=== PATIENT | male | born 1945 | race Caucasian/White ===

== ENCOUNTER 2018-11-20 18:50 | Emergency (ER) | payer OTHER, MEDICARE ==
[~2018-11-20] VITALS: Ht 177.8 cm; Wt 74.1 kg
[~2018-11-20 18:50] MED LIST: ALENDRONATE70 MG PO; AMLODIPINE BESYL5 MG OR; AMOXICILLIN500 MG PO; ANTI-FUNGAL12 TOP; ARICEPT PO; ARTIFI TEARS OP; ASTELIN NASA137 MCG; BIOTIN FORTE5 MG OR; BL CALCIUM500 MG PO; CALCIUM500 M1 OR; CEPHALEXIN500 MG PO; CIPROFLOXACN500 MG PO; CLARITIN10 M1 PO; COMPAZINE10 MG OR; DEPO-MEDROL80 MG/ML IM; DERMA SMOOTHE EX; DESONIDE0.05 % EX; DILAUDID 2MG2 MG/TA1 PO; DIOVAN HCT320 MG/25 PO; FLOMAX0.4 M1 PO; FLONASE NASAL50 MCG; FLUOCINONIDE0.054 TOP; GNP RED YEAST RICE PO; HALCION0.25 MG OR; HOUR PAIN OR; LISINOPRIL5 MG PO; LOMOTIL2.5 MG OR; LUTEIN20 MG OR; METO25TAB PO; METOPROLOL SUCC50 MG OR; MULTI VIT PO; MULTIVITAM10 OR; NAPROSYN500 MG PO; OMEGA-1 PO; OMEPRAZOLE10 MG PO; OMEPRAZOLE20 MG PO; PROTONIX40 M2 PO; ULTRA OMEGA PO; VITAMIN C1000 MG PO; VITAMIN D2 PO; VITAMIN D32000 UNIT PO; ZOCOR20 MG PO; ZOSTAVAX IM; [UNRECOGNIZED DRUG - OTHER] EX
[2018-11-20] MEDS ORDERED: LOSARTAN POT25 MG PO (19:05)
[2018-11-20] MEDS ORDERED: ARICEPT5 MG PO (19:05)
[2018-11-20] MEDS ORDERED: NAMENDA10 MG PO (19:05)
[2018-11-20] MEDS ORDERED: FLEXERIL PO (20:48)
[2018-11-20] MEDS ORDERED: NAPROSYN500 MG PO (20:48)
[2018-11-20 21:05] VITALS: BP 133/89
== END 2018-11-20 21:05 | disposition home or self-care (01) | DRG 552 ==
LOC: ED 18:50
DX: S33.5XXA Sprain of ligaments of lumbar spine, initial encounter (principal); S23.3XXA Sprain of ligaments of thoracic spine, initial encounter; V52.5XXA Driver of pick-up truck or van injured in collision with two- or three-wheeled motor vehicle in traffic accident, initial encounter; Y92.410 Unspecified street and highway as the place of occurrence of the external cause; M47.812 Spondylosis without myelopathy or radiculopathy, cervical region; M47.816 Spondylosis without myelopathy or radiculopathy, lumbar region; M47.814 Spondylosis without myelopathy or radiculopathy, thoracic region; R51 Headache

== ENCOUNTER 2019-01-20 04:29 | Inpatient (IN) | payer MEDICARE, OTHER ==
[~2019-01-20] VITALS: Ht 177.8 cm; Wt 74.2 kg
[~2019-01-20 04:29] MED LIST changes: +ARICEPT5 MG PO; +FLEXERIL PO; +LOSARTAN POT25 MG PO; +NAMENDA10 MG PO
--- NOTE | 2019-01-20 04:33 | NUR ---
PATIENT AMBULATORY TO ROOM 10 FOR BEDSIDE TRIAGE. UNDRESSED INTO A GOWN. AWAITING EVAL.
[2019-01-20 05:09] LABS: HEMATOCRIT 46.1 % (39.0-50.0); HEMOGLOBIN 15.7 g/dl (14.0-18.0); IMMATURE GRANULOCYTES 0.6 % (0.0-5.0); MEAN CELL VOLUME 94.1 fL CALC (80.0-100.0); MEAN CORPUSCULAR HGB CONC 34.1 g/L CALC (32.0-36.0); NEUT# 9.11 thou/uL (1.82-7.42); RED BLOOD COUNT 4.9 mill/uL (4.70-6.10); RED CELL DISTRI WIDTH 13.5 % (11.5-15.5)
--- NOTE | 2019-01-20 05:13 | NUR ---
MEDICATED WITH ZOFRAN AND TORADOL PER ORDER AND IV FLUIDS INFUSING. XRAY AT BEDSIDE.
[2019-01-20 05:25] LABS: ALBUMIN 4.5 g/dL (3.2-5.0); BILIRUBIN, TOTAL 2.6 mg/dL (0.0-1.4); CREATININE 1.5 mg/dL (0.7-1.3); POTASSIUM 4.2 mmol/l (3.5-5.1); TOTAL PROTEIN 8.7 g/dL (6.3-8.2)
--- NOTE | 2019-01-20 05:56 | NUR ---
DR GARCIA IN TO GO OVER RESULTS WITH PT AND .
--- NOTE | 2019-01-20 06:20 | NUR ---
CALLED FLOOR TO GIVE REPORT, [facility] WILL CALL BACK
--- NOTE | 2019-01-20 06:28 | NUR ---
CALLED THE FLOOR AGAIN FOR REPORT, NO ANSWER.
--- NOTE | 2019-01-20 06:38 | NUR ---
CALLED FLOOR AGAIN FOR REPORT, ASKED TO WAIT UNTIL DAY SHIFT COMES ON.
--- NOTE | 2019-01-20 06:48 | NUR ---
Admission Note Report Given to: CARMELO MEADE Transported by: X Wheelchair Stretcher Transported with: X Nurse Transporter X Patent IV O2 Diagnostic Sales Specialist
[2019-01-20 06:55] VITALS: BP 144/87
--- NOTE | 2019-01-20 06:55 | NUR ---
PT ARRIVED TO [facility] VIA WHEELCHAIR ACCOMPANIED BY ER NURSE. 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 PT AMBULATES WITH STEADY GAIT. ORIENTED PT TO ROOM AND CALL LIGHT, VERBALIZED UNDERSTANDING. BED ALARM SET FOR SAFETY, DISCUSSED DIET PT UPSET BUT VERBALIZED UNDERSTANDING. 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 CALL LIGHT IN REACH,CONTINUE TO MONITOR.
--- NOTE | 2019-01-20 08:58 | NUR ---
DISCUSSED LOVENOX, PT IN AGREEMENT. PT REQUESTING SOMETHING TO DRINK, INFORMED PT THAT HE IS NPO, PT UPSET, REORIENTED PT TO DIET AND IVF FLUIDS, VERBALIZED UNDERSTANDING. CALL LIGHT IN REACH, CONTINUE TO MONITOR.
[2019-01-20 09:33] LABS: CHOLESTEROL HDL RATIO 3.5 (<4.4 (CALC))
[2019-01-20 12:05] LABS: BARBITURATES NEGATIVE (NEGATIVE); COCAINE NEGATIVE (NEGATIVE); METHADONE NEGATIVE (NEGATIVE); OXCYCODONE NEGATIVE (NEGATIVE); TETRAHYDROCANNABIONOL NEGATIVE (NEGATIVE); TRICYLIC ANTIDEPRESSANTS NEGATIVE (NEGATIVE)
--- NOTE | 2019-01-20 12:15 | NUR ---
PT AMBULATING HALLWAY, NO SIGNS OF DISTRESS NOTED, RESP EVEN AND UNLABORED. IVF INFUSING, CONTINUE TO MONITOR.
[2019-01-20 14:17] LABS: URINE BILIRUBIN - DIPSTICK NEGATIVE (NEGATIVE); URINE BLOOD DIPSTICK SMALL (NEGATIVE); URINE COLOR YELLOW; URINE GLUCOSE - DIPSTICK NEGATIVE (NEGATIVE); URINE KETONE TRACE mg/dL (NEGATIVE); URINE LEUK ESTERASE LARGE (NEGATIVE); URINE NITRITE - DIPSTICK NEGATIVE (Negative); URINE PH 7.5 (4.5-8.0); URINE PROTEIN - DIPSTICK 100 mg/dL (NEG-TRACE); URINE SPECIFIC GRAVITY 1.015
[2019-01-20 14:23] LABS: URINE SQUAMOUS EPITHELIAL CELL FEW EPI/hpf (0-FEW); URINE WBC TNTC WBC/hpf (0-5)
[2019-01-20 14:24] LABS: URINE AMORPH SEDIMENT MANY hpf (NONE-FER); URINE BACTERIA FEW hpf
[2019-01-20 17:04] VITALS: BP 120/79
--- NOTE | 2019-01-20 18:09 | NUR ---
PT RESTING IN BED, WITH EYES CLOSED, NO SIGNS OF DISTRESS NOTED, RESP EVEN AND UNLABORED. CALL LIGHT IN REACH,CONTINUE TO MONITOR.
[2019-01-20 19:28] VITALS: BP 119/75
--- NOTE | 2019-01-20 20:00 | NUR ---
PATIENT IS UP AND AMBULATING IN THE MILLER-STEADY ON HIS FEET AT THIS TIME. REINFORCED TO PATIENT THAT HE IS NPO AT THIS TIME-NO FOOD OR FLUIDS ORALLY AT THIS TIME. IVF PATENT AND INFUSING AT 125CC/HR VIA RIGHT FOREARM SITE. NO COMPLAINTS. SAFETY PRECAUTIONS REINFORCED. WILL CONT TO MONITOR.
--- NOTE | 2019-01-21 00:16 | NUR ---
PATIENT RESTING IN BED-AWAKE ALERT AND ORIENTEDX3. PATIENT WITH NO COMPLAINTS AT THIS TIME. IVF NS PATENT ANDINFUSING AT 125CC/HR VIA RIGHT FOREARM SITE. SITE IS HEALTHY AT THIS TIME. PATIENT HAS SOME DIFFICULTY ANSWERING QUESTIONS. SAFETY PRECAUTIONS REINFORCED. CALL LIGHT IN REACH. WILL CONT TO MONITOR.
--- NOTE | 2019-01-21 04:00 | NUR ---
PATIENT RESTING IN BED-POSITIONED ON ILEFT SIDE WITH EYES CLOSED-APPEARS SLEEPING-RESP ARE EVEN AND UNLABORED. IVF PATENT AND INFUSING AT 125CC/HR VIA RIGHT FOREARM SIRE. CALL LIGHT IN REACH. WILL CONT TO MONITOR.
[2019-01-21 04:04] VITALS: BP 136/78
[2019-01-21 07:36] VITALS: BP 131/81
--- NOTE | 2019-01-21 07:36 | NUR ---
PT RESTING IN BED, NO SIGNS OF DISTRESS NOTED, RESP EVEN AND UNLABORED. PT ALERT AND ORIENTED X3, DISCUSSED POC, PT IN AGREEMENT. CALL LIGHT IN REACH,CONTINUE TO MONITOR. ASSESSMENT COMPLETED.
--- NOTE | 2019-01-21 09:30 | NUR ---
PT CHANGED TO CLEAR LIQUID WATER PROVIDED, INFORMED PT OF NEED TO REPEAT URINE CULTURE,PT IN AGREEMENT TO SHOWER, HENNY PROVIDED TO SHOWER AND CLEAN PERIAREA, FOR CLEAN CATCH. ASSISTED IN SHOWER BY SASHA. CONTINUE TO MONITOR.
[2019-01-21 09:53] LABS: HEMATOCRIT 40.5 % (39.0-50.0); MEAN CORPUSCULAR HGB 32.2 pG CALC (26.0-32.0); MEAN CORPUSCULAR HGB CONC 31.6 g/L CALC (32.0-36.0); RED BLOOD COUNT 3.98 mill/uL (4.70-6.10); RED CELL DISTRI WIDTH 13.9 % (11.5-15.5)
[2019-01-21 09:54] LABS: HEMOGLOBIN 12.8 g/dl (14.0-18.0); MEAN CELL VOLUME 101.8 fL CALC (80.0-100.0)
[2019-01-21 10:11] LABS: CREATININE 1.4 mg/dL (0.7-1.3); MAGNESIUM 1.9 mg/dL (1.6-2.3); POTASSIUM 4.7 mmol/l (3.5-5.1)
[2019-01-21 10:21] LABS: URINE BILIRUBIN - DIPSTICK NEGATIVE (NEGATIVE); URINE BLOOD DIPSTICK MODERATE (NEGATIVE); URINE COLOR YELLOW; URINE GLUCOSE - DIPSTICK NEGATIVE (NEGATIVE); URINE KETONE NEGATIVE (NEGATIVE); URINE LEUK ESTERASE MODERATE (Negative); URINE NITRITE - DIPSTICK NEGATIVE (Negative); URINE PROTEIN - DIPSTICK 30 mg/dL (NEG-TRACE); URINE SPECIFIC GRAVITY 1.015
[2019-01-21 10:23] LABS: URINE CLARITY CLOUDY
--- NOTE | 2019-01-21 10:30 | NUR ---
DISCUSSED INFUSION OF ROCEPHIN, PT IN AGREEMENT. CALL LIGHT IN REACH,CONTINUE TO MONITOR.
[2019-01-21 10:57] LABS: URINE WBC TNTC WBC/hpf (0-5)
--- NOTE | 2019-01-21 11:30 | NUR ---
ORDERS TO PLACE ZELAYA CATHETER, #16F ZELAYA INSERTED USING STERILE TECHNIQUE, SOME DIFFICULTY ADVANCING CATHETER, BUT SUCCESSFULLY INSERTED. PT TOLERATED WELL, BAG DRAINING CLOUDY DEQUAN URINE TO GRAVITY, STAT LOCK IN PLACE TO R INNER THIGH. CALL LIGHT IN REACH,CONTINUE TO MONITOR.
--- NOTE | 2019-01-21 14:38 | NUR ---
NURSING MANAGER ORANGE AND ER CHARGE NURSE ATTEMPTED IV INSERTION, BOTH UNSUCCESSFUL. NOTIFIED WATER CONTROL STATION ENGINEER, POSSIBLE MIDLINE INSERTION TOMORROW. CALL LIGHT IN REACH,CONTINUE TO MONITOR.
--- NOTE | 2019-01-21 16:13 | NUR ---
PT AMBULATING HALLWAY, NO SIGNS OF DISTRESS NOTED, CONTINUE TO MONITOR.
[2019-01-21 16:40] VITALS: BP 127/75
[2019-01-21 19:18] VITALS: BP 126/79
--- NOTE | 2019-01-21 21:33 | NUR ---
PATIENT IS UP AMBULATING IN THE HALLS WITH STEADY GAIT. PATIENT IS CARRYING THR ZELAYA DRAINAGE BAG BELOW THE LEVEL OF THE BLADDER DIRECTED. NO COMPLAINTS AT THIS TIME. WILL CONT TO MONITOR
--- NOTE | 2019-01-22 | NUR ---
PATIENT APPEARS SLEEPING AT THIS TIME WITH EYES CLOSED. RESP ARE EVEN AND UNLABORED. ZELAYA CATH PATENT AND DRAINING ORANGE URINE-PATIENT IS TAKING PYRIDIUM. NPO FOR TESTING IN AM. CALL LIGHT IN REACH. WILL CONT TO MONITOR.
[2019-01-22 03:52] VITALS: BP 119/66
--- NOTE | 2019-01-22 05:00 | NUR ---
PATIENT AWAKE ALERT AND ORIENTED WALKING IN THE MILLER WITH STEADY GAIT WITH URINE DRAINAGE BAG BENEATH THE LEVEL OF THE BLADDER. URINE CONT TO BE ORANGE DUE TO PYRIDIUM. NPO FOR TESTING THIS MORNING. NO COMPLAINTS AT THIS TIME. WILL CONT TO MONITOR
[2019-01-22 05:06] LABS: HEMATOCRIT 38.7 % (39.0-50.0); HEMOGLOBIN 12.8 g/dl (14.0-18.0); IMMATURE GRANULOCYTES 1.1 % (0.0-5.0); MEAN CELL VOLUME 96.8 fL CALC (80.0-100.0); MEAN CORPUSCULAR HGB CONC 33.1 g/L CALC (32.0-36.0); NEUT# 6.38 thou/uL (1.82-7.42); RED CELL DISTRI WIDTH 13.3 % (11.5-15.5)
[2019-01-22 05:18] LABS: ANION GAP 10 (6-22 (CALC)); BUN 16 mg/dL (8-23); BUN/CREATININE RATIO 15 (12-20 (CALC)); CARBON DIOXIDE 22 mmol/l (22-30); CHLORIDE 110 mmol/l (95-108); CREATININE 1.1 mg/dL (0.7-1.3); GFR > 60 ML/MIN (>=60 (CALC)); GFR FOR AFR.AMER. > 60 ML/MIN (>=60 (CALC)); LIPASE 155 u/l (23-300); MAGNESIUM 1.8 mg/dL (1.6-2.3); POTASSIUM 3.9 mmol/l (3.5-5.1); SODIUM 138 mmol/l (137-146)
--- NOTE | 2019-01-22 07:58 | NUR ---
SHIFT CHANGE REPORT, PT SLEEPING AT THIS TIME, BREATHING EVEN AND NON-LABORED, NO SIGN DISCOMFORT OBSERVED, ZELAYA CATHETER IN PLACE WITH DEQUAN DRAINAGE, CALL TRUJILLO IN REACH.
[2019-01-22 08:26] VITALS: BP 116/66
[2019-01-22] MEDS ORDERED: KEFLEX500 MG PO (10:50)
--- NOTE | 2019-01-22 12:00 | NUR ---
DR LAU ROUNDED, DISCUSSED PREVIOUS ORDERS OF MIDLINE PLACEMENT AND ABD US BUT HE SAID PT DIDNT NEED EITHER ORDER AND STATED TO CNACEL HE WOULD D/C PT HOME WITH ZELAYA CATHETER TO FOLLOW UP WITH DR ELLIOTT,PT INFORMED AND STATED UNDERSTANDING.
[2019-01-22 15:14] VITALS: BP 126/86
--- NOTE | 2019-01-22 15:40 | NUR ---
DC ORDERS PROCESSED, PT WAITING FOR SISTER TO TRANSPORT HIM HOME, C/O HEARTBURN, DR LAU NOTIFIED AND GAVE ORDER. LATER PT C/O SEVERE ABD PAIN AND NAUSEA, NO IV ACCESS TO MEDICATE, YASSINE WRITER EDITOR PLACED IV CATHETER AND CONCERNS ADDRESSED. DR LAU INFORMED OF PT'S C/O OF ABD PAIN AND WROTE ORDERS. SISTER (MAURA) HERE AND REQUEST TO HAVE US DORERED EARLIER DONE, DR LAU AWARE PT WILL NOT BE LEAVING TODAY, ORDERED TESTS TO BE DONE BEFORE PT LEAVES, ONCOMING RN TO CONTNUE FOLLOW UP.
[2019-01-22 19:00] VITALS: BP 140/82
--- NOTE | 2019-01-22 19:40 | NUR ---
RECEIVED CALL FROM RandiAyse AZUL, PATIENT'S SISTER, AND PER HER STATEMENT, THE PATIENT'S HEALTH CARE SURROGATE. SHE HAD SEVERAL CONCERNS REGARDING THE PATIENT'S PLAN OF CARE AND WAS ENCOURAGED TO EXPRESS HER FEELINGS FULLY. SHE WAS ADVISED THAT WITHOUT LEGAL PAPERWORK IN THE PATIENT'S RECORD, SHE COULD NOT BE INVOLVED IN THE PLAN OF CARE UNLESS SHE WAS PHYSICALLY PRESENT AND THE PATIENT AGREED. SHE EXPRESSED UNDERSTANDING AND PLANS TO PURSUE HEALTHCARE SURROGACY/POA DUE TO PATIENT'S MEMORY LOSS. SHE ALSO STATED THAT PATIENT PLANNED ON DISCONTINUING THE USE OF ALCOHOL UPON DISCHARGE AND WAS ADVISED TO CALL CASE MANAGEMENT IN AM FOR ASSISTANCE AND/OR EDUCATION ON POSSIBLE OUTPATIENT RESOURCES AND ALSO ADVICE ON COMPLETION OF POA PAPERWORK. CASE MANAGEMENT WAS NOTIFIED OF THIS CONVERSATION AND ADVISED THAT MS. AZUL WOULD BE CONTACTING THEM IN THE AM.
--- NOTE | 2019-01-22 20:00 | NUR ---
PATIENT RESTING IN BED AT THIS TIME. AWAKE ALERT AND ORIENTEDX3. IVF PATENT AND INFUSING ORDERED VIA RIGHT FOREARM SITE. SITE REMAINS HEALTHY. ZELAYA CATH PATENT AND DRIANING YELLOW URINE. NPO AT THIS TIME. FOR CT ABD/PELVIS TONIGHT. WILL CONT TO MONITOR.
--- NOTE | 2019-01-22 22:24 | NUR ---
PATIENT WENT DOWN QAND BACK TO RADIOLOGY FOR CT ABD ORDERED. PATIENT ASSISTED BACK INTO BED. ZELAYA PATENT AND DRAING SLIGHTLY ORANGE URINE. PATIENT IS ON PYRIDIUM. IVF PATENT AND INFUSING ORDERED VIA RIGHT FOREARM SITE-SITE REMAINS HEALTHYA THIS TIME. PATIENT REMAINS NPO. CONT TO C/O SOME ABD DISCOMFORT. SAFETY PRECAUTIONS REINFORCED. CALL LIGHT IN REACH. WILL CONT TO MONITOR.
--- NOTE | 2019-01-23 00:22 | NUR ---
PATIENT RESTING IN BED-PER CT ZELAYA CATH BALLOON WAS DEFLATED AND THEN REINSERTED AND BALLOON REINFLATED-DRAINING LARGE AMT OF LIGHT ORANGE URINE FOLLOWING THE ADJUSTMENT OF THE ZELAYA CATH. PATIENT REMAINS NPO AT THIS TIME. IVF PATENT AND INFUSING VIA RIGHT FOREARM SITE ORDERED. SITE REMAINS HEALTHY. SAFETY PRECAUTIONS REINFORCED. CALL LIGHT IN REACH. WILL CONT TO MONITOR.
[2019-01-23 04:20] VITALS: BP 115/67
--- NOTE | 2019-01-23 04:30 | NUR ---
PATIENT RESTING IN BED WITH NO COMPLAINTS AT THIS TIME. IVF PATENT AND INFUSING ORDERED. ZELAYA CATH PATENT AND DRAINING ORANGE URINE-PATIENT IS ON PYRIDIUM. CALL LIGHT IN REACH. WILL CONT TO MONITOR.
[2019-01-23 05:03] LABS: HEMATOCRIT 38.4 % (39.0-50.0); HEMOGLOBIN 12.9 g/dl (14.0-18.0); IMMATURE GRANULOCYTES 0.7 % (0.0-5.0); MEAN CELL VOLUME 95.3 fL CALC (80.0-100.0); MEAN CORPUSCULAR HGB CONC 33.6 g/L CALC (32.0-36.0); RED BLOOD COUNT 4.03 mill/uL (4.70-6.10); RED CELL DISTRI WIDTH 13.2 % (11.5-15.5)
[2019-01-23 05:21] LABS: ALKALINE PHOSPHATASE 177 u/l (38-126); AMYLASE 1151 u/l (30-110); ANION GAP 11 (6-22 (CALC)); BILIRUBIN, TOTAL 3.9 mg/dL (0.0-1.4); BUN 10 mg/dL (8-23); BUN/CREATININE RATIO 10 (12-20 (CALC)); CARBON DIOXIDE 23 mmol/l (22-30); CHLORIDE 106 mmol/l (95-108); GFR > 60 ML/MIN (>=60 (CALC)); GFR FOR AFR.AMER. > 60 ML/MIN (>=60 (CALC)); MAGNESIUM 1.7 mg/dL (1.6-2.3); POTASSIUM 3.4 mmol/l (3.5-5.1); SGOT/AST 130 u/l (19-48); SODIUM 137 mmol/l (137-146)
[2019-01-23 05:29] LABS: LIPASE 3333 u/l (23-300); TOTAL PROTEIN 6.2 g/dL (6.3-8.2)
--- NOTE | 2019-01-23 08:09 | NUR ---
PT SITTING IN COUCH. ASSESSMENT DONE. PT IS A&O X3 AT THIS TIME. PT NPO. PT DENIES PAIN. RESPS EVEN AND UNLABORED. ZELAYA IS PATENT WITH ORANGE URINE. CALL LIGHT IN REACH.
[2019-01-23 08:15] VITALS: BP 123/77
--- NOTE | 2019-01-23 10:26 | NUR ---
DR. GIBBS AT BEDSIDE TO ASSESS AND DISCUSS POC WITH PT.
--- NOTE | 2019-01-23 10:30 | NUR ---
DR. LAU AT BEDSIDE TO DISCUSS POC WITH PT.
--- NOTE | 2019-01-23 12:22 | NUR ---
PT IN ROOM VISTING WITH SISTER. NO S/S OF DISTRESS NOTED. CALL LIGHT IN REACH.
[2019-01-23 15:18] VITALS: BP 111/68
--- NOTE | 2019-01-23 15:32 | NUR ---
PT RESTING IN BED. PT DENIES PAIN AT THIS TIME OR NEEDS. CALL LIGHT IN REACH.
[2019-01-23 19:00] VITALS: BP 120/77
--- NOTE | 2019-01-23 20:00 | NUR ---
PATIENT RESTING IN BED WITH HOB ELEVATED WATCHING TV. PATIENT IS AWAKE ALERT AND ORIENTEDX3. PATIENT WITH NO COMPLAINTS AT THIS TIME. IVF PATENT AND INFUSING RIGHT WRIST AT 125CC/HR. SITE IS HEALTHY AT THIS TIME. ZELAYA PATENT AND DRAINING ORANGE URINE-PATIENT IS ON PURIDIUM. SAFETY PRECAUTIONS REINFORCED. CALL LIGHT IN REACH. WILL CONT TO MONITOR.
--- NOTE | 2019-01-23 23:34 | NUR ---
PATIENT RESTING IN BED WITH NO COMPLAINTS AT THIS TIME. TELE MONITOR IN PLACE. SAFETY PRECAUTIONS REINFORCED. CALL LIGHT IN REACH. WILL CONT TO MONITOR.
--- NOTE | 2019-01-23 23:36 | NUR ---
PATIENT APPEARS SLEEPING AT THIS TIME WITH EYES CLOSED. RESP ARE EVEN AND UNLABORED. IVF PATENT AND INFUSING AT 125CC/HR. SITE REMAINS HEALTHY. CALL LIGHT IN REACH. WILL CONT TO MONITOR.
[2019-01-24 04:00] VITALS: BP 142/77
--- NOTE | 2019-01-24 04:43 | NUR ---
RESTING IN BED-ZELAYA PATENT AND DRAINING ORANGE URINE. PATIENT IS ON PYRIDIUM. IVF PATENT AND INFUSING VIA RIGHT WRIST SITE AT 125CC/HR, NPO FOR POSS PROCEDURE TODAY. CALL LIGHT IN REACH. WILL CONT TO MONITOR.
[2019-01-24 05:53] LABS: HEMATOCRIT 36.5 % (39.0-50.0); HEMOGLOBIN 12.3 g/dl (14.0-18.0); IMMATURE GRANULOCYTES 1.2 % (0.0-5.0); MEAN CELL VOLUME 96.1 fL CALC (80.0-100.0); MEAN CORPUSCULAR HGB 32.4 pG CALC (26.0-32.0); MEAN CORPUSCULAR HGB CONC 33.7 g/L CALC (32.0-36.0); NEUT# 4.65 thou/uL (1.82-7.42); RED BLOOD COUNT 3.8 mill/uL (4.70-6.10); RED CELL DISTRI WIDTH 13.7 % (11.5-15.5)
[2019-01-24 06:21] LABS: ALBUMIN 2.7 g/dL (3.2-5.0); ALKALINE PHOSPHATASE 225 u/l (38-126); AMYLASE 215 u/l (30-110); ANION GAP 11 (6-22 (CALC)); BILIRUBIN, TOTAL 4.8 mg/dL (0.0-1.4); BUN 7 mg/dL (8-23); BUN/CREATININE RATIO 8 (12-20 (CALC)); CARBON DIOXIDE 22 mmol/l (22-30); CHLORIDE 111 mmol/l (95-108); CREATININE 0.9 mg/dL (0.7-1.3); GFR > 60 ML/MIN (>=60 (CALC)); GFR FOR AFR.AMER. > 60 ML/MIN (>=60 (CALC)); LIPASE 466 u/l (23-300); MAGNESIUM 1.8 mg/dL (1.6-2.3); POTASSIUM 3.4 mmol/l (3.5-5.1); SGOT/AST 156 u/l (19-48); SODIUM 141 mmol/l (137-146); TOTAL PROTEIN 5.8 g/dL (6.3-8.2)
[2019-01-24 07:34] VITALS: BP 132/82
--- NOTE | 2019-01-24 08:00 | NUR ---
ASSESSMENT DONE. PT IS DROWSY BUT A&O X3. FORGETFUL AT TIMES. PT DENIES PAIN AT THIS TIME. IVF INFUSING WELL. ZELAYA IS PATENT WITH ORANGE URINE. PT NPO. PT DENIES NEEDS AT THIS TIME. CALL LIGHT IN REACH.
--- NOTE | 2019-01-24 09:55 | NUR ---
DR. GIBBS AT BEDSIDE TO DISCUSS POC WITH PT. GAVE MD SISTER NUMBER TO CALL. RE: POC.
--- NOTE | 2019-01-24 11:42 | NUR ---
PT AMBULATING IN THE HALLWAY WITH NO S/S OF DISTRESS NOTED.
--- NOTE | 2019-01-24 16:10 | NUR ---
PT AMBULATES IN THE HALLWAYS COMES TO DESK . PT ASKED THE SAME QUESTIONS Re: DIET. REORIENT PT. PT STATED I FORGET. PT DENIES ANY OTHER NEEDS AT THIS TIME.
[2019-01-24 17:17] VITALS: BP 120/76
--- NOTE | 2019-01-24 19:19 | NUR ---
REPORT FROM MIGUEL GUEVARA. PT UP AMBULATING IN HALLS, NOW BACK IN ROOM. ALERT AND ORIENTED. PT DENIES ANY PAIN OR DISCOMFORT. ZELAYA CATHETER PATENT AND DRAINING TO GRAVITY. IV SITE APPEARS HEALTHY. DISCUSSED POC, NPO AFTER MIDNIGHT AND PROCEDURE. PT VERBALIZED UNDERSTANDING. CALL LIGHT WITHIN REACH. WILL CONTINUE TO MONITOR.
[2019-01-24 19:35] VITALS: BP 149/91
--- NOTE | 2019-01-24 23:03 | NUR ---
PT RESTING IN BED WITH EYES CLOSED. NO S/S OF DISTRESS NOTED. ZELAYA PATENT DRAINING TO GRAVITY. CALL LIGHT WITHIN REACH. WILL CONTINUE TO MONITOR.
[2019-01-25] VITALS (11 sets, daily range): BP systolic 102–159; BP diastolic 52–88
--- NOTE | 2019-01-25 02:01 | NUR ---
PT RESTING IN BED WITH EYES CLOSED. FLUIDS COMPLETE NEW BAG HUNG ORDERED. PT DENIES ANY PAIN OR DISCOMFORT. CALL LIGHT WITHIN REACH. WILL CONTINUE TO MONITOR.
[2019-01-25 05:21] LABS: HEMATOCRIT 37.1 % (39.0-50.0); HEMOGLOBIN 12.3 g/dl (14.0-18.0); IMMATURE GRANULOCYTES 1.2 % (0.0-5.0); MEAN CELL VOLUME 95.6 fL CALC (80.0-100.0); MEAN CORPUSCULAR HGB 31.7 pG CALC (26.0-32.0); MEAN CORPUSCULAR HGB CONC 33.2 g/L CALC (32.0-36.0); NEUT# 4.12 thou/uL (1.82-7.42); RED BLOOD COUNT 3.88 mill/uL (4.70-6.10)
--- NOTE | 2019-01-25 05:24 | NUR ---
PT AMBULATING IN HALLS. NO S/S OF DISTRESS NOTED.
[2019-01-25 05:33] LABS: INTERNATIONAL NORMALIZED RATIO 1.1 RATIO (0.7-1.3); PROTHROMBIN TIME 11.3 SECONDS (9.0-12.5)
[2019-01-25 05:44] LABS: ALBUMIN 2.7 g/dL (3.2-5.0); ALKALINE PHOSPHATASE 253 u/l (38-126); ANION GAP 11 (6-22 (CALC)); BILIRUBIN, TOTAL 3.1 mg/dL (0.0-1.4); BUN 6 mg/dL (8-23); BUN/CREATININE RATIO 6 (12-20 (CALC)); CARBON DIOXIDE 19 mmol/l (22-30); CHLORIDE 115 mmol/l (95-108); CREATININE 0.9 mg/dL (0.7-1.3); GFR > 60 ML/MIN (>=60 (CALC)); GFR FOR AFR.AMER. > 60 ML/MIN (>=60 (CALC)); MAGNESIUM 1.7 mg/dL (1.6-2.3); POTASSIUM 3.4 mmol/l (3.5-5.1); SGOT/AST 129 u/l (19-48); SODIUM 142 mmol/l (137-146); TOTAL PROTEIN 5.8 g/dL (6.3-8.2)
--- NOTE | 2019-01-25 07:35 | NUR ---
ASSESSMENT IS COMPLETED: IV SITE IS FREE FROM REDNESS OR EDEMA. HR IS REG,PULSES ARE STRONG X4, ABD IS SOFT WITH ACTIVE BS. BREATH SOUNDS ARE CLEAR. ZELAYA INTACT DRAINING YELLOW /ORANGE URINE. CONTINUE TO OSBERVE AND MONITOR.
--- NOTE | 2019-01-25 07:43 | NUR ---
PT TRANSPORTED TO OR VIA STRETCHER ACCOMPANIED BY STAFF. ZELAYA INTACT. IV SITE IS FREE FROM REDNESS OR EDEMA. ABT SENT WITH OR CREW,.
--- NOTE | 2019-01-25 11:20 | NUR ---
PT RETURNED FROM OR VIA STRETCHER ACCOMPANIED BY STAFF.
--- NOTE | 2019-01-25 12:00 | NUR ---
PT IS SITTING UP IN BED WITH NO DISTRESS NOTED. WANTS TO CALL HIS SISTER. ZELAYA INTACT. WILL REMOVE. IV SITE IS FREE FROM REDNESS OR EDEMA.
--- NOTE | 2019-01-25 16:02 | NUR ---
PT IS RESTING IN BED WITH NO DISTRESS NOTED. IV SITE IS FREE FROM REDNESS OR EDEMA.
--- NOTE | 2019-01-25 16:58 | NUR ---
ZELAYA DISCONTINUED, CATHETER INTACT.
--- NOTE | 2019-01-25 18:51 | NUR ---
PT GIVEN STRAIGHT CATH KITS TO USE IF UNABLE TO EMPTY PER .
--- NOTE | 2019-01-25 18:56 | NUR ---
PT AMBUALTING IN THE MILLER
--- NOTE | 2019-01-25 19:40 | NUR ---
PT AMBULATING IN ROOM, DISCUSSED POC, AND INCENTIVE SPIROMETER, VERBALIZED UNDERSTANDING AND DEMONSTRATED IT'S USE. CALL LIGHT IN REACH,CONTINUE TO MONITOR.
--- NOTE | 2019-01-26 | NUR ---
PT RESTING IN BED, NO SIGNS OF DISTRESS NOTED, RESP EVEN AND UNLABORED. DISCUSSED BLADDER SCANNER, PT SCANNED OF 776ML, PER SCANNER. PT DENIES ANY DISCOMFORT. YEARS AGO PT STRAIGHT CATHED HIMSELF PER PT. PT STRAIGHT CATHED, TOLERATED WELL, VOIDED 450 OF CLEAR ORANGE URINE. CALL LIGHT IN REACH,CONTINUE TO MONITOR.
[2019-01-26 00:43] VITALS: BP 110/71
[2019-01-26 04:58] VITALS: BP 114/57
[2019-01-26 08:15] VITALS: BP 183/100
--- NOTE | 2019-01-26 08:15 | NUR ---
ASSESSMENT IS COMPLETED: IV SITE IS FREE FROM REDNESS OR EDEMA. HR IS REG,PULSES ARE STRONG X4, ABD IS SOFT WITH HYPOACTIVE BS. BREATH SOUNDS ARE CLEAR. CONTINUE TO OBSERVE AND MONITOR.
[2019-01-26 09:24] LABS: HEMATOCRIT 40.8 % (39.0-50.0); HEMOGLOBIN 13.4 g/dl (14.0-18.0); IMMATURE GRANULOCYTES 1.2 % (0.0-5.0); MEAN CELL VOLUME 96.7 fL CALC (80.0-100.0); MEAN CORPUSCULAR HGB 31.8 pG CALC (26.0-32.0); MEAN CORPUSCULAR HGB CONC 32.8 g/L CALC (32.0-36.0); NEUT# 5.44 thou/uL (1.82-7.42); RED BLOOD COUNT 4.22 mill/uL (4.70-6.10); RED CELL DISTRI WIDTH 14.2 % (11.5-15.5)
--- NOTE | 2019-01-26 09:40 | NUR ---
attempted to get blood out of the iv site and came out. able to get blood from lac
--- NOTE | 2019-01-26 10:24 | NUR ---
lab came and picked up blood
[2019-01-26 10:27] LABS: ALBUMIN 2.9 g/dL (3.2-5.0); BILIRUBIN, TOTAL 2.4 mg/dL (0.0-1.4); TOTAL PROTEIN 6.3 g/dL (6.3-8.2)
--- NOTE | 2019-01-26 11:04 | NUR ---
PT;S FAMILY MEMBER WOULD LIKE FOR HIM TO STAY 1 MORE DAY DUE TO PERSONAL REASONS: MEDICATION, DR'S APPOINTMENT AND WORK.
--- NOTE | 2019-01-26 11:44 | NUR ---
IN TO VISIT WITH PT. WILL DISCHARGE TOMORROW IF EVERYTHING IS OK, PT NEEDS TO HAVE A STOOL,
--- NOTE | 2019-01-26 12:15 | NUR ---
PT HAS BEEN AMBULATING IN THE ROOM AND HALLWAY. NO IV SITE IS PRESENT. IS AWARE. DISCONTINUED ALL IV FLUIDS, PAIN MED AND NAUSEA MED.
--- NOTE | 2019-01-26 13:00 | NUR ---
SISTER CALLED AND INQUIRED ABOUT PT GOING HOME TODAY, REQUESTING TO HAVE DC TOMORROW. INFORMED DR. LAU ABOUT FAMILY WANTING TO TALK TO HIM. CONTINUE TO OBSERVE AND MONITOR.
--- NOTE | 2019-01-26 14:00 | NUR ---
PT WAS GIVEN MEDICATION TO ASSIST WITH STOOL. CONTINUES TO AMBULATE IN THE HALLWAY. AND ROOM. CONTINUE TO OBSERVE AND MONITOR.
--- NOTE | 2019-01-26 15:43 | NUR ---
pt stated" i voided in the bathroom. a moderate amount.", continue to observe and monitor.
--- NOTE | 2019-01-26 16:20 | NUR ---
PT IS RELAXING IN BED WITH MO DISTRESS NOTED.
[2019-01-26 16:27] VITALS: BP 136/78
[2019-01-26 20:15] VITALS: BP 134/27
--- NOTE | 2019-01-26 20:30 | NUR ---
PT. SITTING UP IN BED WITH NO DISTRESS NOTED; REPORTS VERY MILD ABD DISCOMFORT AND DENIES NEEDS FOR PAIN MEDICATION AT THIS TIME; ASSESSMENT COMPLETED; PT. WITH NO IV SITE PER DAYSHIFT REPORT MD IS AWARE; X4 INCISIONAL PUNCTURE SITES INTACT WITH DERMABOND AND SCREWHEAD POLISHER; INCENTIVE SPIROMETER PLACE AT BEDSIDE AND IS ENCOURAGED TO USE; PT. IS GIVEN PRUNE JUICE AND LACTULOSE TO ASSIST WITH BM; ENCOURAGED TO CALL FOR ANY NEEDS; CALL LIGHT IS IN REACH.
--- NOTE | 2019-01-26 22:01 | NUR ---
PT. RESTING IN BED ON LEFT SIDE WITH EYES CLOSED; RESP EVEN AND UNLABORED; CALL LIGHT IS IN REACH.
[2019-01-26 23:22] VITALS: BP 154/92
--- NOTE | 2019-01-27 | NUR ---
0000-PT. UNABLE TO VOID ON HIS OWN AND WHEN ASKED IF HE COULD STRAIGHT CATH HIMSELF MD'S NOTE SAYS HE HAS BEEN DOING; PT. IS NOT KNOWLEDGABLE ON HOW TO USE CATHETERS. PT. IS POOR HISTORIAN AND HAS CHANGED HIS STORY MULTIPLE TIMES WHILE THIS BENEFITS ADMINISTRATOR IN ROOM ON IF HE INFACT CATHS HIMSELF AT HOME OR NOT AND OF THE LENGTH ITS BEEN SINCE HE HAS LAST DONE THIS. HE THEN SAYS HIS UROLOGIST IN NO LONGER PRACTICING. BLADDER SCANNING DONE AND READING >999MLS. THERE IS NO ORDER TO BE FOUND IN CHART FOR INTERMITTENT CATHETERIZING, CALLED AND NOTIFIED OF THIS; ORDER RECEIVED TO PLACE ZELAYA CATHETER; WILL UPDATED PT. AND CARRY OUT ORDER.
--- NOTE | 2019-01-27 00:15 | NUR ---
PT. IN AGREEMENT WITH ZELAYA CATHETER TO BE PLACED; 16 CITIZEN [place] PLACED X1 ATTEMPT USING STERILE TECHNIQUE; TOTAL OF 1400MLS OF ORANGE CLEAR URINE OUT AND CLAMPED IN BETWEEN OUTPUT TO HELP PREVENT SPASMS. PT. TOLERATED WELL. DENIES FURTHER NEEDS. CALL LIGHT IS IN REACH; WILL CONTINUE TO MONITOR.
--- NOTE | 2019-01-27 03:20 | NUR ---
PT. FOUND IN BATHROOM HAD AN INCONTINENCE OF BM IN BED AND HAD A BM IN TOILET; PT. SET UP FOR SHOWER AND LINENS CHANGED.
[2019-01-27 03:52] VITALS: BP 147/81
--- NOTE | 2019-01-27 03:59 | NUR ---
PT. MEDICATED WITH PRN PERCOCET FOR ABD PAIN 4/10; WILL REASSESS; CALL LIGHT IS IN REACH.
[2019-01-27 07:57] VITALS: BP 144/84
--- NOTE | 2019-01-27 07:57 | NUR ---
PT A/O X3. SPEECH IS CLEAR. RESP EVEN AND UNLABORED. LUNG SOUNDS CLEAR. BOWEL SOUNDS ACTIVE X4. STRONG RADIAL AND PEDAL PULSES. 3 PUNCTURE INCISIONS TO ABDOMEN, INTACT W/ DERMABOND. ZELAYA DRAINING ORANGE URINE FREELY TO GRAVITY. PT DENIES ANY PAIN OR NEEDS. POC DISCUSSED. SAFETY PRECAUTIONS IN PLACE. CALL LIGHT IN REACH. WILL CONTINUE TO MONITOR.
[2019-01-27 10:26] LABS: BUN 5 mg/dL (8-23); BUN/CREATININE RATIO 6 (12-20 (CALC)); CHLORIDE 107 mmol/l (95-108); CREATININE 0.8 mg/dL (0.7-1.3); GFR > 60 ML/MIN (>=60 (CALC)); GFR FOR AFR.AMER. > 60 ML/MIN (>=60 (CALC)); LIPASE 70 u/l (23-300); MAGNESIUM 1.5 mg/dL (1.6-2.3); POTASSIUM 3.2 mmol/l (3.5-5.1); SODIUM 138 mmol/l (137-146)
[2019-01-27 10:29] LABS: HEMATOCRIT 37.7 % (39.0-50.0); HEMOGLOBIN 12.5 g/dl (14.0-18.0); MEAN CELL VOLUME 95.9 fL CALC (80.0-100.0); MEAN CORPUSCULAR HGB 31.8 pG CALC (26.0-32.0); MEAN CORPUSCULAR HGB CONC 33.2 g/L CALC (32.0-36.0); RED BLOOD COUNT 3.93 mill/uL (4.70-6.10); RED CELL DISTRI WIDTH 13.8 % (11.5-15.5)
[2019-01-27 10:32] LABS: ANION GAP 11 (6-22 (CALC)); CARBON DIOXIDE 23 mmol/l (22-30)
--- NOTE | 2019-01-27 11:48 | NUR ---
PT WATCHING TELEVISION. NO C/O PAIN OR NEEDS. ZELAYA IN PLACE. CALL LIGHT IN REACH. WILL CONTINUE TO MONITOR.
--- NOTE | 2019-01-27 14:25 | NUR ---
D/C INSTRCUTIONS DISCUSSED W/ PT AND SISTER. ALSO ZELAYA CARE AND BAG CHANGED DISCUSSED AND DEMONSTRATED. BOTH STATE UNDERSTANDING. PT GETTING DRESSED AT THIS TIME.
--- NOTE | 2019-01-27 14:49 | NUR ---
Discharge instructions given. Patient verbalizes understanding of same. Discharged in stable condition via Wheelchair to Home with family. All belongings sent with pt.
== END 2019-01-27 14:40 | DRG 418 ==
LOC: ED 04:29 → ED-I 05:52 → ED 06:10 → MS2 06:11
PROVIDERS: Family Medicine; Internal Medicine Nephrology; Nurse Practitioner Family; Surgery; ADMIT Internal Medicine; ATTEND Internal Medicine
PROC: 0T9B70Z Drainage of Bladder with Drainage Device, Via Natural or Artificial Opening (ICD-10-PCS; 2019-01-21)
PROC: 0FT44ZZ Resection of Gallbladder, Percutaneous Endoscopic Approach (ICD-10-PCS; principal; 2019-01-25)
PROC: BF001ZZ Plain Radiography of Bile Ducts using Low Osmolar Contrast (ICD-10-PCS; 2019-01-25)
DX: K85.10 Biliary acute pancreatitis without necrosis or infection (principal); N17.9 Acute kidney failure, unspecified; K85.20 Alcohol induced acute pancreatitis without necrosis or infection; K80.20 Calculus of gallbladder without cholecystitis without obstruction; N18.3 Chronic kidney disease, stage 3 (moderate); R33.9 Retention of urine, unspecified; E86.0 Dehydration; N32.89 Other specified disorders of bladder; N31.9 Neuromuscular dysfunction of bladder, unspecified; Z87.891 Personal history of nicotine dependence; Z72.89 Other problems related to lifestyle; Z87.440 Personal history of urinary (tract) infections
CPT/HCPCS: J1650; Q9967

== ENCOUNTER 2019-02-10 17:37 | Emergency (ER) | payer MEDICARE, OTHER ==
[~2019-02-10] VITALS: Ht 177.8 cm; Wt 73.0 kg
[~2019-02-10 17:37] MED LIST changes: +KEFLEX500 MG PO
[2019-02-10] MEDS ORDERED: TAMSULOSIN0.4 MG PO (17:46)
[2019-02-10] MEDS ORDERED: NITROFURANTOIN100 MG PO (17:47)
[2019-02-10 18:28] LABS: URINE BILIRUBIN - DIPSTICK NEGATIVE (NEGATIVE); URINE BLOOD DIPSTICK NEGATIVE (NEGATIVE); URINE COLOR YELLOW; URINE GLUCOSE - DIPSTICK NEGATIVE (NEGATIVE); URINE KETONE NEGATIVE (NEGATIVE); URINE LEUK ESTERASE TRACE (NEGATIVE); URINE NITRITE - DIPSTICK NEGATIVE (Negative); URINE PH 5.5 (4.5-8.0); URINE PROTEIN - DIPSTICK TRACE mg/dL (NEG-TRACE); URINE SPECIFIC GRAVITY 1.025; URINE UROBILINOGEN - DIPSTICK 0.2 E.U./dL (0.2)
[2019-02-10 18:40] LABS: ALBUMIN 3.9 g/dL (3.2-5.0); ALKALINE PHOSPHATASE 111 u/l (38-126); ANION GAP 14 (6-22 (CALC)); BILIRUBIN, TOTAL 0.7 mg/dL (0.0-1.4); BUN 17 mg/dL (8-23); BUN/CREATININE RATIO 14 (12-20 (CALC)); CARBON DIOXIDE 27 mmol/l (22-30); CHLORIDE 103 mmol/l (95-108); CREATININE 1.2 mg/dL (0.7-1.3); GFR 59 ML/MIN (>=60 (CALC)); GFR FOR AFR.AMER. > 60 ML/MIN (>=60 (CALC)); POTASSIUM 4.2 mmol/l (3.5-5.1); SGOT/AST 30 u/l (19-48); SODIUM 140 mmol/l (137-146); TOTAL PROTEIN 7.4 g/dL (6.3-8.2)
[2019-02-10 19:15] LABS: HEMATOCRIT 38.3 % (39.0-50.0); HEMOGLOBIN 12.3 g/dl (14.0-18.0); IMMATURE GRANULOCYTES 1.8 % (0.0-5.0); MEAN CELL VOLUME 99.2 fL CALC (80.0-100.0); MEAN CORPUSCULAR HGB 31.9 pG CALC (26.0-32.0); MEAN CORPUSCULAR HGB CONC 32.1 g/L CALC (32.0-36.0); NEUT# 5.22 thou/uL (1.82-7.42); RED BLOOD COUNT 3.86 mill/uL (4.70-6.10); RED CELL DISTRI WIDTH 13.5 % (11.5-15.5)
[2019-02-10 20:04] VITALS: BP 115/76
== END 2019-02-10 20:04 | disposition home or self-care (01) ==
LOC: ED 17:37
PROVIDERS: Emergency Medicine
DX: R00.0 Tachycardia, unspecified (principal)

== ENCOUNTER → 2019-03-21 10:19 | Emergency (ER) | payer MEDICARE, OTHER ==
[~2019-03-21 10:19] MED LIST changes: +NITROFURANTOIN100 MG PO; +TAMSULOSIN0.4 MG PO
== END | disposition left against medical advice (07) ==
LOC: LWOBS 10:19 → ED 10:19 → LWOBS 10:29 → ED 10:29
DX: Z91.19 Patient's noncompliance with other medical treatment and regimen (principal)

== ENCOUNTER 2019-07-07 12:32 | Emergency (ER) | payer MEDICARE, OTHER ==
[~2019-07-07] VITALS: Ht 176.5 cm; Wt 80.0 kg
[~2019-07-07 12:32] MED LIST changes: +B121000 MCG PO; +MEMANTINE HCL10 MG PO
[2019-07-07] MEDS ORDERED: ARICEPT10 MG PO (12:41)
[2019-07-07] MEDS ORDERED: TESSALON PER100 MG PO (14:26)
[2019-07-07] MEDS ORDERED: AUGMENTIN500TAB PO (14:26)
[2019-07-07 14:30] VITALS: BP 149/74
== END 2019-07-07 14:30 | disposition home or self-care (01) ==
LOC: ED 12:32
DX: J40 Bronchitis, not specified as acute or chronic (principal); J32.9 Chronic sinusitis, unspecified

== ENCOUNTER 2021-05-13 16:20 | Emergency (ER) | payer MEDICARE, OTHER ==
[~2021-05-13] VITALS: Ht 176.5 cm; Wt 75.0 kg
[~2021-05-13 16:20] MED LIST changes: +ARICEPT10 MG PO; +AUGMENTIN500TAB PO; +TESSALON PER100 MG PO
[2021-05-13 19:57] VITALS: BP 143/91
== END 2021-05-13 19:54 | disposition home or self-care (01) ==
LOC: ED 16:20
DX: F41.9 Anxiety disorder, unspecified (principal); R53.82 Chronic fatigue, unspecified; R41.3 Other amnesia; Z20.822 Contact with and (suspected) exposure to COVID-19; U07.1 COVID-19